=== PATIENT | female | born 1995 | race Hispanic/Latino ===

== ENCOUNTER 2021-11-10 10:05 | Emergency (ER) | payer SELFPAY ==
[~2021-11-10] VITALS: Ht 154.9 cm; Wt 81.6 kg
[~2021-11-10 10:05] MED LIST: ACET1TAB12 PO; DOCU-116 PO; IBUP-1493 PO; IRON-6 PO
[2021-11-10 10:09] VITALS: BP 128/87
[2021-11-10] MEDS ORDERED: ACETAMINOPHEN 500 MG TABLET ONE (11:37)
[2021-11-10] MEDS ORDERED: ACETAMINOPHEN 500 MG TABLET PO SCH (12:00)
== END 2021-11-10 12:51 | disposition home or self-care (01) ==
LOC: EDH 10:05
DX: U07.1 COVID-19 (principal); Z79.1 Long term (current) use of non-steroidal anti-inflammatories (NSAID); Z79.899 Other long term (current) drug therapy
CPT/HCPCS: 87635; 87804 ×2; 99283; C9803

== ENCOUNTER 2025-09-06 21:32 | Emergency (ER) | payer BC ==
[~2025-09-06] VITALS: Ht 154.9 cm; Wt 68.9 kg
[~2025-09-06 21:32] MED LIST changes: +HYDR-3421 PO
[2025-09-06 21:33] VITALS: BP 132/94; PULSE 84; RESP 16; TEMP 98.1
--- NOTE | 2025-09-06 21:34 | NUR ---
UA CUP PROVIDED
[2025-09-06 22:40] LABS: IMMATURE GRANULOCYTE ABSOLUTE 0.02 K/uL (0-1); NUCLEATED RED BLOOD CELLS 0.0 % (0.0-0.19); PLATELET COUNT (AUTO) 352 K/uL (130-400); RED BLOOD CELL COUNT(AUTO) 4.51 MIL/uL (4.00-5.50); RED CELL DISTRIBUTION WIDTH 12.5 % (11.0-15.5); WHITE BLOOD COUNT (AUTO) 8.9 K/uL (4.8-10.8)
[2025-09-06 22:49] LABS: CREATININE 0.6 mg/dL (0.5-1.0); GLOMERULAR FILTR. RATE CALC 122.0 mL/min (>90); GLUCOSE,RANDOM 82.0 mg/dL (70-105); SODIUM SERUM 140.0 mmol/L (136-145); UREA NITROGEN, BLOOD 8.0 mg/dL (7-18)
[2025-09-06 22:55] LABS: APPEARANCE,URINE CLEAR (CLEAR); GLUCOSE, URINE (UA) NEGATIVE (NEGATIVE); LEUKOCYTE ESTERASE ,URINE NEGATIVE Leu/uL (NEGATIVE); NITRATE,URINE NEGATIVE (NEGATIVE); OCCULT BLOOD,URINE NEGATIVE (NEGATIVE)
[2025-09-06 22:56] LABS: HCG,QUALITATIVE URINE NEGATIVE (NEGATIVE)
[2025-09-06 22:57] LABS: ADD UA MICROSCOPIC NO
--- NOTE | 2025-09-07 01:13 | NUR ---
PT SITTING IN LOBBY WITH FAMILY ALONG WINDOWS BY VENDING MACHINES GOOD EVEN CHEST RISE AND FALL OBSERVED
--- NOTE | 2025-09-07 01:43 | ERN ---
General Chief Complaint: Multiple Complaints Stated Complaint: ABD PAIN, DIZZINESS, " SHAKY" Time Seen by MD: 22:26 Time Seen by Midlevel: 22:26 Source: patient History of Present Illness Initial Comments 30-year-old female presents to the emergency department for evaluation of severe 8/10 midepigastric abdominal pain that started earlier today. Patient states she has been on semaglutide for the past six months and recently increased her dose to 2 mg. For the last couple of days she has been having episodes of dizziness and associated abdominal pain. Allergies: Coded Allergies: No Known Allergies (Unverified Allergy, Unknown, 08/16/16) Home Meds Active Scripts Hydroxyzine HCl (Hydroxyzine HCl) 25 Mg Tablet, 25 MG PO HS for anxiety and insomnia, #60 TAB 1 Refill Prov:ANNELIESE MCDANIEL 08/08/23 Reported Medications Acetaminophen with Codeine (Tylenol with Codeine #3 Tablet) 1 Each Tablet, 1-2 TAB PO Q4-6 PRN for PAIN LEVEL 6 TO 10, #30 TAB 09/24/16 Ibuprofen (Motrin/Advil) 800 Mg Tab, 800 MG PO TIDMEALS PRN for PAIN LEVEL 1 TO 5, #90 TAB 09/24/16 Iron, Carb & Gluc/FA/B12/C/Dss (Ferralet 90 Dual-Iron Tablet) 1 Each Tablet, 1 EACH PO BID PRN for ANEMIA, #60 TAB 09/24/16 Docusate Sodium (Colace) 100 Mg Capsule, 100 MG PO BID PRN for CONSTIPATION, #30 CAP 09/24/16 Past Medical History Past Medical History: Anxiety Past Surgical History: Social History Social History: Other Female( History) LMP: Aug 29, 2025 ROS Dictation CONSTITUTIONAL: Negative except for HPI HEAD/FACE: Negative except for HPI EENT: Negative except for HPI RESPIRATORY: Negative except for HPI GASTROINTESTINAL/ABDOMINAL: Negative except for HPI GENITOURINARY: Negative except for HPI MUSCULOSKELETAL: Negative except for HPI INTEGUMENTARY: Negative except for HPI NEUROLOGICAL/PSYCH: Negative except for HPI HEMATOLOGIC/LYMPHATIC: Negative except for HPI All Systems Negative, Except as noted above. 13 point review of systems assessed and all negative except for above. Physical Exam Physical Exam Dictation Vital Signs reviewed General Appearance: Alert, oriented x 3, no acute distress, well developed, nourished. Head and Face: non-traumatic. Eyes: PERRL, pink conjunctivas, eyelid no trauma, anterior chamber with arcus senilis. Ears: Pinnas intact and no signs of trauma or erythema ear canals clear and no discharge TM no erythema Nose: No discharge, no bleeding. Oropharynx: Mouth normal, tongue pink, pharynx clear,no erythema, tonsils no exudates, no abscesses noted, mucous membrane moist Neck: Supple, non-tender, no thyromegaly, no masses, no JVD, no bruits Breast:Deferred Chest:No tenderness, no crepitus, no paradoxical movement, no retractions Lungs:Clear, well-ventilated, symmetric, no rales, no wheezing, no rhonchi, no stridor, good breath sounds bilaterally Heart: Regular rate, regular rhythm, no murmur, no gallops Vascular: no peripheral edema, Abdomen: Soft, positive bowel sounds, nondistended, no guarding, nontender, no rebound, no masses no hepatomegaly, no splenomegaly, no Parnell's sign, no hernias. Rectal: Deferred Genital: Deferred Neurological: Normal speech, motor function intact, sensory function intact Musculoskeletal: Neck nontender, full range of motion, back nontender, full range of motion, Extremities: nontender, full range of motion Skin: Color pink, dry, no turgor, no rash, no lacerations, no abrasions, no contusions. Lymphatic: Deferred Results Laboratory and Microbiology Lab and Micro Result Laboratory Tests Test 09/06/25 22:32 09/06/25 22:34 White Blood Count 8.9 K/uL (4.8-10.8) Red Blood Count 4.51 MIL/uL (4.00-5.50) Hemoglobin 13.9 g/dL (12.0-16.0) Hematocrit 41.4 % (36-48) Mean Corpuscular Volume 91.8 fL (79-99) Mean Corpuscular Hemoglobin 30.8 pg (27.0-33.0) Mean Corpuscular Hemoglobin Concent 33.6 g/dL (32.0-36.0) Red Cell Distribution Width 12.5 % (11.0-15.5) Platelet Count 352 K/uL (130-400) Mean Platelet Volume 10.2 fL (7.5-10.5) Immature Granulocyte % (Auto) 0.2 % (0-1) Neutrophils (%) (Auto) 62.2 % (40.0-77.0) Lymphocytes (%) (Auto) 31.1 % (21.0-51.0) Monocytes (%) (Auto) 5.3 % (3.0-13.0) Eosinophils (%) (Auto) 1.0 % (0.0-8.0) Basophils (%) (Auto) 0.2 % (0.0-5.0) Neutrophils # (Auto) 5.5 K/uL (1.8-7.7) Lymphocytes # (Auto) 2.8 K/uL (1.0-4.8) Monocytes # (Auto) 0.5 K/uL (0.1-1.0) Eosinophils # (Auto) 0.09 K/uL (0.00-0.70) Basophils # (Auto) 0.02 K/uL (0.00-0.20) Absolute Immature Granulocyte (auto 0.02 K/uL (0-1) Nucleated Red Blood Cells 0.0 % (0.0-0.19) Sodium Level 140 mmol/L (136-145) Potassium Level 3.7 mmol/L (3.5-5.1) Chloride Level 103 mmol/L (101-111) Carbon Dioxide Level 32 mmol/L (21-32) Blood Urea Nitrogen 8 mg/dL (7-18) Creatinine 0.6 mg/dL (0.5-1.0) Glomerular Filtration Rate Calc 122 mL/min (>90) Random Glucose 82 mg/dL (70-105) Total Calcium 8.8 mg/dL (8.5-10.1) Lipase 32 U/L (16-77) Urine Color COLORLESS (YELLOW) Urine Appearance CLEAR (CLEAR) Urine pH 6.0 (5.0-8.0) Urine Specific [place] 1.004 (1.001-1.031) Urine Protein NEGATIVE mg/dL (NEGATIVE) Urine Glucose (UA) NEGATIVE mg/dL (NEGATIVE) Urine Ketones NEGATIVE mg/dL (NEGATIVE) Urine Occult Blood NEGATIVE (NEGATIVE) Urine Nitrate NEGATIVE (NEGATIVE) Urine Bilirubin NEGATIVE mg/dL (NEGATIVE) Urine Urobilinogen 0.2 mg/dL (0.2-1.0) Urine Leukocyte Esterase NEGATIVE Jonathan/uL Urine HCG, Qualitative NEGATIVE (NEGATIVE) Labs Reviewed?: Yes MDM MDM: Differential diagnosis: Pancreatitis, dehydration, electrolyte abnormality There are no social concerns with this patient. Prescription drug management Prescriptions will include: None Medical management and examination interpretation discussions were had by me with other qualified healthcare professionals as indicated for the patient's care. ED Course Orders Procedure Category Date Status Time Vital Signs Per CPOE 09/06/25 Transmitted Routine 21:34 Saline Lock Iv CPOE 09/06/25 Transmitted 21:34 Cbc With Differential LAB 09/06/25 Complete 21:34 Lipase LAB 09/06/25 Complete 21:34 Urinalysis Profile LAB 09/06/25 Complete 21:34 Basic Metabolic Panel LAB 09/06/25 Complete 21:34 ,Urine Test LAB 09/06/25 Complete 21:34 Vital Signs Date Time Temp Pulse Resp B/P (MAP) Pulse Ox O2 Delivery O2 Flow Rate FiO2 09/06/25 21:33 98.1 84 16 132/94 99 Room Air DX & DISP Disposition: Discharge Departure Impression: Primary Impression: Medication reaction Condition: Stable Additional Instructions: Your blood work today is unremarkable. There is no evidence of pancreatitis. Your renal function is normal. Your electrolytes are normal. No evidence of anemia. Your urinalysis does not show any evidence of infection. Your symptoms may be related to the semaglutide medication you are taking. Please follow up with your primary care doctor for further evaluation Referrals: LUIS A PHILLIPS MD (PCP) Time of Disposition: 01:42 I have reviewed the case, and I agree with, Diagnosis and Plan I performed the substantive portion of the visit. I have reviewed and personally made and approve the management plan that is documented in the note by myself or the MERRILL. I acknowledge for responsibility for the patient's management plan. KAYLEIGH FRANCOIS PAC Sep 07, 2025 01:43
== END 2025-09-07 01:55 | disposition home or self-care (01) ==
LOC: EDH 21:32
DX: R42 Dizziness and giddiness (principal); T50.995A Adverse effect of other drugs, medicaments and biological substances, initial encounter; R10.13 Epigastric pain; F41.9 Anxiety disorder, unspecified; Y92.89 Other specified places as the place of occurrence of the external cause; Z98.890 Other specified postprocedural states
CPT/HCPCS: 36415; 80048; 81003; 81025; 83690; 85025; 99283